=== PATIENT | male | born 1995 | race Caucasian/White ===

== ENCOUNTER 2017-01-27 11:09 | Emergency (ER) | payer SELFPAY ==
[2017-01-27 11:19] VITALS: TEMP 98.4
[2017-01-27] MEDS ORDERED: NS 1,000 ML IV ONE ×2 (11:26→13:18)
[2017-01-27] MEDS ORDERED: ONDANSETRON 4 MG/2 ML VIAL IVP ONE (11:26)
[2017-01-27] MEDS ORDERED: LORazepam 2 MG/ML INJ IVP ONE (11:26)
[2017-01-27 11:33] LABS: % IMMATURE GRANULYOCYTES 0.3 % (0.0-1.1); ABSOLUTE IMMATURE GRANULOCYTES 0.04 10^3/uL (0.00-0.10); ADD DIFF? NO; ADD MORPH? NO; ADD SCAN? NO; ATYPICAL LYMPHOCYTE FLAG 0 (0-99); FRAGMENT RBC FLAG 0 (0-99); HEMATOCRIT 49.4 % (40.0-51.0); HEMOGLOBIN 16.6 g/dL (13.7-17.5); LEFT SHIFT FLG 0 (0-99); LIPEMIA HEMOLYSIS FLAG 80 (0-99); MEAN CELL HEMOGLOBIN 26.9 pg (27.9-34.1); MEAN CELL HEMOGLOBIN CONCENTR. 33.6 g/dL (32.4-36.7); MEAN CELL VOLUME 80.1 fL (81.5-99.8); MEAN PLATELET VOLUME 9.8 fL (8.7-11.7); PLATELET CLUMPS FLAG 0 (0-99); PLATELET COUNT 372 10^3/uL (150-400); RED BLOOD CELL COUNT 6.17 10^6/uL (4.40-6.38); RED CELL DISTRIBUTION WIDTH 13.3 % (11.5-15.2)
[2017-01-27 11:55] LABS: ANION GAP 16 mEq/L (8-16); CALCIUM 9.9 mg/dL (8.5-10.4); CARBON DIOXIDE 22 mEq/l (22-31); CHLORIDE 102 mEq/L (97-110); CREATININE 0.8 mg/dL (0.7-1.3); GLOMERULAR FILTRATION RATE > 60; GLUCOSE 92 mg/dL (70-100); POTASSIUM 4.1 mEq/L (3.5-5.2); SODIUM 140 mEq/L (134-144)
[2017-01-27] MEDS ORDERED: HALOPERIDOL LACT 5 MG/ML INJ IVP ONE (13:17)
--- NOTE | 2017-01-27 13:22 | EDPHY ---
H & P Stated Complaint: ABD PAIN N/V X3 DAYS Source: Patient Exam Limitations: No limitations - Personal History Current Tetanus/Diphtheria Vaccine: Yes Current Tetanus Diphtheria and Acellular Pertussis (TDAP): Yes - Medical/Surgical History Hx Asthma: No Hx Chronic Respiratory Disease: No Hx Diabetes: No Hx Cardiac Disease: No Hx Renal Disease: No Hx Cirrhosis: No Hx Alcoholism: No Hx HIV/AIDS: No Hx Splenectomy or Spleen Trauma: No Other PMH: PMH- MARIJUANA SMOKER - Social History Smoking Status: Current every day smoker Time Seen by Provider: 01/27/17 11:16 HPI/ROS: CHIEF COMPLAINT: nausea, vomiting, abdominal pain HISTORY OF PRESENT ILLNESS: 21-year-old male presents emergency department complaining of nausea, vomiting and abdominal pain x2 days. Patient reports similar symptoms 3 weeks ago. He was treated in the hospital in [place] given Zofran, Dilaudid and lorazepam. Patient reports this improved his symptoms. Patient is a daily marijuana smoker. He denies fevers or chills, no diarrhea. Patient denies any abdominal surgeries. No recent sick contacts. Emesis is bile, he denies blood in his vomit or coffee-ground emesis. REVIEW OF SYSTEMS: A comprehensive 10 point review of systems is otherwise negative aside from elements mentioned in the history of present illness. (Daiana Guzman) - Physical Exam Exam: Physical Exam Gen: Alert and Oriented, NAD HEENT: PERRL, moist mucous membranes NECK: no meningismus CV: regular rate and regular rhythm PULM: CTAB, no wheezes ABDOMEN: soft, diffuse mild tenderness to palpation, no masses, normal bowel sounds BACK: No CVA tenderness NEURO: Neurologically grossly intact EXTREMITIES: normal appearing SKIN: no rash or break in skin on exposed skin PSYCH: answers questions appropriately. (Dainaa Guzman) Constitutional: Initial Vital Signs Temperature (C) 36.9 C 01/27/17 11:09 Heart Rate 68 01/27/17 11:09 Respiratory Rate 20 01/27/17 11:09 Blood Pressure 156/83 H 01/27/17 11:09 O2 Sat (%) 98 01/27/17 11:09 O2 Delivery Mode Room Air Allergies/Adverse Reactions: No Known Allergies Allergy (Unverified 01/27/17 11:14) Home Medications: Medication Instructions Recorded Ondansetron Odt [Zofran Odt] 4 mg PO Q6-8PRN PRN #8 tab 01/27/17 Medical Decision Making - Diagnostics Imaging: Right upper quadrant ultrasound- Impression: Normal. No cholelithiasis, biliary dilation, hydronephrosis, or free fluid. Findings discussed with emergency department physician syrup mixer assistant, Daiana Guzman NP on January 27, 2017 at 1512 hours. Dictated By: George Peguero MD (Daiana Guzman) ED Course/Re-evaluation: Patient brought in by EMS with IV in place, patient is given 1 L of normal saline, 1 mg of lorazepam IV and 4 mg of Zofran IV. Patient is requesting Dilaudid. On repeat examination the patient is sleeping. Patient has an elevated white blood cell count at 12,000, I think this is stress related and due to vomiting, I am not concerned about a bacterial infection. Chemistry panel is unremarkable. I have added on a lipase and LFTs. 110pm-patient continues with nausea and upper abdominal pain. I have ordered 5 mg of IV Haldol and a 2nd L of normal saline. 210pm-total bilirubin is 1.6, patient reports feeling much better after the Haldol, on repeat examination he is tender in his right upper quadrant and epigastric region. I will order a right upper quadrant ultrasound. Right upper quadrant ultrasound is negative for cholecystitis. Patient continues feeling better after the Haldol, no nausea or vomiting, abdominal pain has resolved. He will be discharged home with a prescription for Zofran. He is given return precautions and [facility]. (Daiana Guzman) I did not see this patient while he was in the emergency department. However his care was discussed with the nurse practitioner while the patient was in the department. I agree with treatment plan and management (Iggy Holm) Differential Diagnosis: The differential diagnosis for the patient's nausea and vomiting included but was not limited to cholecystitis, cyclic vomiting syndrome from cannabinoid use , gastroenteritis, gastritis, appendicitis, and medication side effect. (Daiana Guzman) - Data Points Laboratory Results: Laboratory Results 01/27/17 11:18 01/27/17 11:18 Medications Given: Discontinued Medications Haloperidol Lactate (Haldol Injection) 5 mg IVP EDNOW ONE Stop: 01/27/17 13:18 Last Admin: 01/27/17 13:33 Dose: 5 mg Sodium Chloride (Ns) 1,000 mls @ 0 mls/hr IV ONCE ONE PRN Reason: Wide Open Stop: 01/27/17 11:27 Last Admin: 01/27/17 11:32 Dose: 1,000 mls Sodium Chloride (Ns) 1,000 mls @ 0 mls/hr IV ONCE ONE PRN Reason: Wide Open Stop: 01/27/17 13:19 Last Admin: 01/27/17 13:35 Dose: 1,000 mls Lorazepam (Ativan Injection) 1 mg IVP EDNOW ONE Stop: 01/27/17 11:27 Last Admin: 01/27/17 11:32 Dose: 1 mg Ondansetron HCl (Zofran) 4 mg IVP EDNOW ONE Stop: 01/27/17 11:27 Last Admin: 01/27/17 11:32 Dose: 4 mg Ondansetron HCl (Zofran Odt 4 Mg Prepack#2) 1 btl TAKEHOME EDNOW ONE Stop: 01/27/17 16:21 Last Admin: 01/27/17 16:24 Dose: 1 btl Departure - Departure Disposition: Home, Routine, Self-Care Clinical Impression: Nausea & vomiting Condition: Good Instructions: Acute Nausea and Vomiting (ED), Abdominal Pain (ED) Additional Instructions: Take 4 mg of Zofran every 8 hours as needed for nausea. Stop smoking marijuana. Follow up with the primary care doctor listed for any continued symptoms. Return to the emergency department for worsening abdominal pain, new symptoms or concerns. Referrals: [facility] [Outside] - As per Instructions Prescriptions: Ondansetron Odt [Zofran Odt] 4 mg PO Q6-8PRN PRN #8 tab PRN Reason: Nausea/Vomiting, Can'T Take Po
[2017-01-27 13:35] LABS: ALBUMIN 4.6 g/dL (3.5-5.0); BILIRUBIN,TOTAL 1.6 mg/dL (0.1-1.4); BILIRUBIN-CONJUGATED 0.3 mg/dL (0.0-0.5); BILIRUBIN-UNCONJUGATED 1.3 mg/dL (0.0-1.1); TOTAL PROTEIN 7.6 g/dL (6.3-8.2)
[2017-01-27 13:45] LABS: COLOR YELLOW; LEUKOCYTE ESTERASE,URINE NEGATIVE (NEGATIVE); NITRITE,URINE NEGATIVE (NEGATIVE)
[2017-01-27 14:44] VITALS: O2SAT 96
[2017-01-27] MEDS ORDERED: ONDANSETRON 4MG PREPACK#2 BTL TAKEHOME ONE (16:20)
[2017-01-27 16:26] VITALS: BP 131/84; PULSE 86; RESP 16
== END 2017-01-27 16:26 | disposition home or self-care (01) ==
DX: R11.2 Nausea with vomiting, unspecified (principal); F17.200 Nicotine dependence, unspecified, uncomplicated
CPT/HCPCS: 96374; J2405

== ENCOUNTER 2017-01-30 07:10 | Emergency (ER) | payer SELFPAY ==
--- NOTE | 2017-01-30 07:14 | EDPHY ---
H & P Time Seen by Provider: 01/30/17 07:13 HPI/ROS: CHIEF COMPLAINT: Nausea and vomiting HISTORY OF PRESENT ILLNESS: Patient was seen here 3 days ago for similar symptoms. He recently moved from [place]. His history of heroin addiction. He was treated with haloperidol and Ativan last time had a negative right upper quadrant ultrasound. Patient said he felt well for about 10-12 hours and then started having recurrent nausea and vomiting. He took a friend's hydrocodone today and says that that did not help his symptoms. He presents with symptoms that are moderate to severe, associated with diffuse mild abdominal cramping and no diarrhea. Not associated with fevers or chills. Says it is worse if he tries to eat or drink anything. Labs drawn at that visit showed electrolytes within normal limits, a slightly elevated liver function test, normal lipase. REVIEW OF SYSTEMS: Eye: no change in vision ENT: no sore throat, dental pain right posterior Cardiac: no chest pain or syncope Pulmonary: no cough or SOB Abdomen: HPI Musculoskeletal: no back pain Skin: no rash Neuro: no headache Constitutional: no fever : no urinary symptoms A comprehensive 10 point review of systems is otherwise negative aside from elements mentioned in the history of present illness. PAST MEDICAL HISTORY: No previous abdominal surgeries. Social history: History of IV heroin abuse for at least the last 5 years, clean for the last 2 weeks. General Appearance: Alert and conversant, cooperative. Eyes: No scleral icterus. ENT, Mouth: Slightly dry mucous membranes, no trismus or gum swelling, no dental tenderness to percussion. Respiratory: Normal respiratory effort, breath sounds equal, lungs are clear to auscultation. Cardiovascular: Regular rate and rhythm. Gastrointestinal: Abdomen is soft and non tender. No rebound or guarding and no Alexandra sign. No McBurney's point tenderness. No hernia. Neurological: Alert and oriented x3. Normally conversant. Face symmetric, normal movement and sensation in all extremities. Skin: Warm and dry, no rashes. Musculoskeletal: No peripheral edema and no joint swelling. Psychiatric: Not agitated. Emergency Department course/MDM: Normal saline 2 L IV for nausea and vomiting. Haldol 5 mg IV and Ativan 1 mg IV. No opioids. Case management referral. Patient felt better after treatment, asked to leave prior to seeing case management. I think that is reasonable. Smoking Status: Current every day smoker Constitutional: Initial Vital Signs Temperature (C) 36.6 C 01/30/17 07:10 Heart Rate 75 01/30/17 07:10 Respiratory Rate 16 01/30/17 07:10 Blood Pressure 145/73 H 01/30/17 07:10 O2 Sat (%) 95 01/30/17 07:10 O2 Delivery Mode Room Air Allergies/Adverse Reactions: No Known Allergies Allergy (Verified 01/30/17 07:14) Home Medications: Medication Instructions Recorded Ondansetron Odt [Zofran Odt] 4 mg PO Q6-8PRN PRN #8 tab 01/27/17 Hydrocodon-Acetaminophen 5-325 01/30/17 Medical Decision Making Differential Diagnosis: Differential considered including but not limited to opioid withdrawal, gastroenteritis, appendicitis, metabolic abnormality. - Data Points Laboratory Results: Laboratory Results 01/30/17 07:30 01/30/17 07:30 01/30/17 01/30/17 07:30 07:30 WBC 11.47 10^3/uL H 10^3/uL (3.80-9.50) RBC 5.61 10^6/uL 10^6/uL (4.40-6.38) Hgb 15.1 g/dL g/dL (13.7-17.5) Hct 43.8 % % (40.0-51.0) MCV 78.1 fL L fL (81.5-99.8) MCH 26.9 pg L pg (27.9-34.1) MCHC 34.5 g/dL g/dL (32.4-36.7) RDW 13.2 % % (11.5-15.2) Plt Count 349 10^3/uL 10^3/uL (150-400) MPV 9.5 fL fL (8.7-11.7) Neut % (Auto) 85.7 % H % (39.3-74.2) Lymph % (Auto) 10.1 % L % (15.0-45.0) [place] % (Auto) 3.6 % L % (4.5-13.0) Eos % (Auto) 0.1 % L % (0.6-7.6) Baso % (Auto) 0.3 % % (0.3-1.7) Nucleat RBC Rel Count 0.0 % % (0.0-0.2) Absolute Neuts (auto) 9.84 10^3/uL H 10^3/uL (1.70-6.50) Absolute Lymphs (auto) 1.16 10^3/uL 10^3/uL (1.00-3.00) Absolute Monos (auto) 0.41 10^3/uL 10^3/uL (0.30-0.80) Absolute Eos (auto) 0.01 10^3/uL L 10^3/uL (0.03-0.40) Absolute Basos (auto) 0.03 10^3/uL 10^3/uL (0.02-0.10) Absolute Nucleated RBC 0.00 10^3/uL 10^3/uL (0-0.01) Immature Gran % 0.2 % % (0.0-1.1) Immature Gran # 0.02 10^3/uL 10^3/uL (0.00-0.10) Sodium 141 mEq/L mEq/L (134-144) Potassium 4.0 mEq/L mEq/L (3.5-5.2) Chloride 104 mEq/L mEq/L (97-110) Carbon Dioxide 25 mEq/l mEq/l (22-31) Anion Gap 12 mEq/L mEq/L (8-16) BUN 9 mg/dL mg/dL (7-23) Creatinine 0.7 mg/dL mg/dL (0.7-1.3) Estimated GFR > 60 Glucose 95 mg/dL mg/dL (70-100) Calcium 9.8 mg/dL mg/dL (8.5-10.4) Medications Given: Discontinued Medications Haloperidol Lactate (Haldol Injection) 5 mg IV EDNOW ONE Stop: 01/30/17 07:22 Last Admin: 01/30/17 07:30 Dose: 5 mg Sodium Chloride (Ns) 1,000 mls @ 0 mls/hr IV ONCE ONE PRN Reason: Wide Open Stop: 01/30/17 07:22 Last Admin: 01/30/17 07:30 Dose: 1,000 mls Sodium Chloride (Ns) 1,000 mls @ 0 mls/hr IV ONCE ONE PRN Reason: Wide Open Stop: 01/30/17 07:22 Last Admin: 01/30/17 09:10 Dose: Not Given Lorazepam (Ativan Injection) 1 mg IVP EDNOW ONE Stop: 01/30/17 07:22 Last Admin: 01/30/17 07:35 Dose: 1 mg Departure - Departure Disposition: Home, Routine, Self-Care Clinical Impression: Nausea & vomiting Qualifiers: Vomiting type: unspecified Vomiting Intractability: non-intractable Qualified Code(s): R11.2 - Nausea with vomiting, unspecified Condition: Good Instructions: Acute Nausea and Vomiting (ED) Referrals: [facility],. [Clinic] - As per Instructions
[2017-01-30 07:16] VITALS: RESP 16
[2017-01-30] MEDS ORDERED: LORazepam 2 MG/ML INJ IVP ONE (07:21)
[2017-01-30] MEDS ORDERED: HALOPERIDOL LACT 5 MG/ML INJ IV ONE (07:21)
[2017-01-30] MEDS ORDERED: NS 1,000 ML IV ONE ×2 (07:21)
[2017-01-30 07:34] LABS: % IMMATURE GRANULYOCYTES 0.2 % (0.0-1.1); ABSOLUTE IMMATURE GRANULOCYTES 0.02 10^3/uL (0.00-0.10); ADD DIFF? NO; ADD MORPH? NO; ADD SCAN? NO; ATYPICAL LYMPHOCYTE FLAG 0 (0-99); FRAGMENT RBC FLAG 0 (0-99); HEMATOCRIT 43.8 % (40.0-51.0); HEMOGLOBIN 15.1 g/dL (13.7-17.5); LEFT SHIFT FLG 0 (0-99); LIPEMIA HEMOLYSIS FLAG 90 (0-99); MEAN CELL HEMOGLOBIN 26.9 pg (27.9-34.1); MEAN CELL HEMOGLOBIN CONCENTR. 34.5 g/dL (32.4-36.7); MEAN CELL VOLUME 78.1 fL (81.5-99.8); MEAN PLATELET VOLUME 9.5 fL (8.7-11.7); PLATELET CLUMPS FLAG 0 (0-99); PLATELET COUNT 349 10^3/uL (150-400); RED BLOOD CELL COUNT 5.61 10^6/uL (4.40-6.38); RED CELL DISTRIBUTION WIDTH 13.2 % (11.5-15.2)
[2017-01-30 08:10] LABS: ANION GAP 12 mEq/L (8-16); CALCIUM 9.8 mg/dL (8.5-10.4); CARBON DIOXIDE 25 mEq/l (22-31); CHLORIDE 104 mEq/L (97-110); CREATININE 0.7 mg/dL (0.7-1.3); GLOMERULAR FILTRATION RATE > 60; GLUCOSE 95 mg/dL (70-100); SODIUM 141 mEq/L (134-144)
[2017-01-30 09:07] VITALS: BP 120/95; PULSE 78; TEMP 98.1; O2SAT 92
== END 2017-01-30 09:08 | disposition home or self-care (01) ==
LOC: EDUNIT#
DX: R11.2 Nausea with vomiting, unspecified (principal); F17.200 Nicotine dependence, unspecified, uncomplicated
CPT/HCPCS: 96374; J2060

== ENCOUNTER 2017-02-01 22:31 | Emergency (ER) | payer SELFPAY ==
[2017-02-01] MEDS ORDERED: FAMOTIDINE 20 MG/NACL 50 ML IV ONE (22:36)
[2017-02-01] MEDS ORDERED: METOCLOPRAMIDE 10 MG/2 ML VIAL IVP ONE (22:36)
[2017-02-01] MEDS ORDERED: NS 1,000 ML IV ONE ×2 (22:36)
--- NOTE | 2017-02-01 22:49 | EDPHY ---
H & P Stated Complaint: Vomiting Time Seen by Provider: 02/01/17 22:32 HPI/ROS: HPI The patient presents with nausea, vomiting, abdominal pain which have been intermittent for the last 1 week. As this is his 3rd ER visit for the same. He is brought in by ambulance today, he has received 4 of Zofran by the paramedics. He says his symptoms have been intermittent, occurring about every other day though are severe. He has multiple episodes of vomiting that seem to occur at random throughout the day and then subsequently developed crampy diffuse abdominal pain. He has not had any diarrhea, he is passing gas and having normal bowel movements. He has been able to eat meals intermittently. Previously in the emergency room he has had a right upper quadrant ultrasound which is unremarkable and other basic laboratory testing which is normal. He has been given Haldol and Ativan with some improvement in his symptoms. He is taking Zofran at home with minimal relief. He does have a history of daily marijuana use for the last 10 years. He last used heroin about 2 weeks ago while living in [place]. REVIEW OF SYSTEMS Constitutional: No fever, no chills. Eyes: No discharge. ENT: No sore throat. Cardiovascular: No chest pain, no palpitations. Respiratory: No cough, no shortness of breath. Gastrointestinal: See HPI Genitourinary: No hematuria. Musculoskeletal: No back pain. Skin: No rashes. Neurological: No headache. PMHx: Healthy, no diabetes, no hypertension Soc Hx: Recently moved here from [place], daily marijuana use, prior IVDU PHYSICAL General Appearance: Alert, no distress Eyes: Pupils equal and round no pallor or injection ENT, Mouth: Mucous membranes moist Respiratory: There are no retractions, lungs are clear to auscultation Cardiovascular: Regular rate and rhythm Gastrointestinal: Abdomen is soft and non-tender, no masses, bowel sounds normal Neurological: A&O, moves all extremities Skin: Warm and dry, no rashes Musculoskeletal: Neck is supple non tender Extremities: symmetrical, full range of motion Psychiatric: Patient is oriented X 3, there is no agitation Source: Patient Exam Limitations: No limitations - Personal History Current Tetanus/Diphtheria Vaccine: Yes Current Tetanus Diphtheria and Acellular Pertussis (TDAP): Yes - Medical/Surgical History Hx Asthma: No Hx Chronic Respiratory Disease: No Hx Diabetes: No Hx Cardiac Disease: No Hx Renal Disease: No Hx Cirrhosis: No Hx Alcoholism: No Hx HIV/AIDS: No Hx Splenectomy or Spleen Trauma: No Other PMH: PMH- MARIJUANA SMOKER, Opiate addiction - Social History Smoking Status: Current every day smoker Constitutional: Initial Vital Signs Temperature (C) 37.1 C 02/01/17 22:35 Heart Rate 67 02/01/17 22:35 Respiratory Rate 12 02/01/17 22:35 Blood Pressure 158/84 H 02/01/17 22:35 O2 Sat (%) 95 02/01/17 22:35 O2 Delivery Mode Room Air Allergies/Adverse Reactions: No Known Allergies Allergy (Verified 01/30/17 07:14) Home Medications: Medication Instructions Recorded Ondansetron Odt [Zofran Odt] 4 mg PO Q6-8PRN PRN #8 tab 01/27/17 Hydrocodon-Acetaminophen 5-325 01/30/17 Metoclopramide [Reglan 10 mg tab 10 mg PO Q6H PRN #20 tab 02/02/17 (*)] Medical Decision Making - Diagnostics Imaging: CT scan of abdomen pelvis with IV contrast shows either small hiatal hernia or esophagitis with thickening of the distal esophagus, discussed with Dr. Ruffin of Radiology. See his report for full details. ED Course/Re-evaluation: I met the paramedics at the bedside to obtain report upon the patient's arrival. We will start IV fluids for hypovolemia and vomiting, administer Reglan, famotidine check basic labs and will reassess him. After the Reglan and IV fluids, the patient had continued vomiting on my reassessment. Labs resulted and demonstrated a leukocytosis, changed from prior labs a few days ago. CT scan abdomen pelvis was performed which showed esophagitis versus hiatal hernia. This could be contributing to the patient's symptomatology. I have discussed this with him and have instructed him to start an antacid. After receiving Haldol the patient was reassessed again, he was able to sleep and is now feeling much better. 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 I have discussed this diagnosis with him and I have encouraged him to stop marijuana use to see if this improves his symptoms. He seems receptive to that. He will be discharged with a prescription for reglan and instructions to use antacids [id number]. I would like for him to follow up with [facility].. Differential Diagnosis: This is a 22-year-old male with no significant past medical history who presents with 1 week of nausea and vomiting associated with crampy abdominal pain. On arrival, he is uncomfortable appearing, with mild diffuse abdominal tenderness. Differential diagnosis includes gastroenteritis, appendicitis, colitis, diverticulitis, biliary colic, cannabinoid hyperemesis syndrome. - Data Points Laboratory Results: Laboratory Results 02/01/17 22:45 02/01/17 22:45 02/02/17 02/01/17 02/01/17 01:20 22:45 22:45 WBC 16.21 10^3/uL H 10^3/uL (3.80-9.50) RBC 5.68 10^6/uL 10^6/uL (4.40-6.38) Hgb 15.2 g/dL g/dL (13.7-17.5) Hct 45.0 % % (40.0-51.0) MCV 79.2 fL L fL (81.5-99.8) MCH 26.8 pg L pg (27.9-34.1) MCHC 33.8 g/dL g/dL (32.4-36.7) RDW 13.5 % % (11.5-15.2) Plt Count 341 10^3/uL 10^3/uL (150-400) MPV 9.6 fL fL (8.7-11.7) Neut % (Auto) 85.9 % H % (39.3-74.2) Lymph % (Auto) 10.0 % L % (15.0-45.0) [place] % (Auto) 2.8 % L % (4.5-13.0) Eos % (Auto) 0.6 % % (0.6-7.6) Baso % (Auto) 0.4 % % (0.3-1.7) Nucleat RBC Rel Count 0.0 % % (0.0-0.2) Absolute Neuts (auto) 13.93 10^3/uL H 10^3/uL (1.70-6.50) Absolute Lymphs (auto) 1.62 10^3/uL 10^3/uL (1.00-3.00) Absolute Monos (auto) 0.45 10^3/uL 10^3/uL (0.30-0.80) Absolute Eos (auto) 0.09 10^3/uL 10^3/uL (0.03-0.40) Absolute Basos (auto) 0.07 10^3/uL 10^3/uL (0.02-0.10) Absolute Nucleated RBC 0.00 10^3/uL 10^3/uL (0-0.01) Immature Gran % 0.3 % % (0.0-1.1) Immature Gran # 0.05 10^3/uL 10^3/uL (0.00-0.10) Sodium 139 mEq/L mEq/L (134-144) Potassium 3.8 mEq/L mEq/L (3.5-5.2) Chloride 101 mEq/L mEq/L (97-110) Carbon Dioxide 24 mEq/l mEq/l (22-31) Anion Gap 14 mEq/L mEq/L (8-16) BUN 11 mg/dL mg/dL (7-23) Creatinine 0.8 mg/dL mg/dL (0.7-1.3) Estimated GFR > 60 Glucose 88 mg/dL mg/dL (70-100) Calcium 9.8 mg/dL mg/dL (8.5-10.4) Total Bilirubin 1.0 mg/dL mg/dL (0.1-1.4) Conjugated Bilirubin 0.3 mg/dL mg/dL (0.0-0.5) Unconjugated Bilirubin 0.7 mg/dL mg/dL (0.0-1.1) AST 38 IU/L IU/L (17-59) ALT 54 IU/L IU/L (21-72) Alkaline Phosphatase 51 IU/L IU/L (38-126) Total Protein 7.2 g/dL g/dL (6.3-8.2) Albumin 4.6 g/dL g/dL (3.5-5.0) Lipase 115.0 IU/L IU/L (23-300) Urine Color YELLOW Urine Appearance CLEAR Urine pH 6.0 (5.0-7.5) Ur Specific [place] 1.021 (1.002-1.030) Urine Protein NEGATIVE (NEGATIVE) Urine Ketones 1+ H (NEGATIVE) Urine Blood NEGATIVE (NEGATIVE) Urine Nitrate NEGATIVE (NEGATIVE) Urine Bilirubin NEGATIVE (NEGATIVE) Urine Urobilinogen NEGATIVE EU EU (0.2-1.0) Ur Leukocyte Esterase NEGATIVE (NEGATIVE) Ur Culture Indicated? NOT INDICATED (NI) Urine Glucose NEGATIVE (NEGATIVE) Medications Given: Discontinued Medications Haloperidol Lactate (Haldol Injection) 5 mg IVP EDNOW ONE Stop: 02/02/17 00:02 Last Admin: 02/02/17 00:21 Dose: 5 mg Sodium Chloride (Ns) 1,000 mls @ 0 mls/hr IV ONCE ONE PRN Reason: Wide Open Stop: 02/01/17 22:37 Last Admin: 02/01/17 22:55 Dose: 1,000 mls Sodium Chloride (Ns) 1,000 mls @ 0 mls/hr IV ONCE ONE PRN Reason: Wide Open Stop: 02/01/17 22:37 Last Admin: 02/01/17 22:55 Dose: 1,000 mls Famotidine/Sodium Chloride (Pepcid 20 Mg (Premix)) 50 mls @ 200 mls/hr IV EDNOW ONE Stop: 02/01/17 22:50 Last Admin: 02/01/17 22:56 Dose: 50 mls Metoclopramide HCl (Reglan Injection) 10 mg IVP EDNOW ONE Stop: 02/01/17 22:37 Last Admin: 02/01/17 22:56 Dose: 10 mg Departure - Departure Disposition: Home, Routine, Self-Care Clinical Impression: Vomiting Qualifiers: Vomiting type: unspecified Vomiting Intractability: unspecified Nausea presence : with nausea Qualified Code(s): R11.2 - Nausea with vomiting, unspecified Leukocytosis Qualifiers: Leukocytosis type: unspecified Qualified Code(s): D72.829 - Elevated white blood cell count, unspecified Condition: Good Instructions: Acute Nausea and Vomiting (ED) Additional Instructions: Please return to the emergency room if your worse in any way. I recommend that you stop using marijuana to see if this helps her symptoms improved. You may have a condition called canabanoid hyperemesis syndrome. Referrals: [facility] [Outside] - As per Instructions Prescriptions: Metoclopramide [Reglan 10 mg tab (*)] 10 mg PO Q6H PRN #20 tab PRN Reason: vomiting
[2017-02-01] MEDS ORDERED: IOPAMIDOL (ISOVUE-300) 100 ML BTL IV ONE (22:55)
[2017-02-01 22:57] LABS: % IMMATURE GRANULYOCYTES 0.3 % (0.0-1.1); ABSOLUTE IMMATURE GRANULOCYTES 0.05 10^3/uL (0.00-0.10); ADD DIFF? NO; ADD MORPH? NO; ADD SCAN? NO; ATYPICAL LYMPHOCYTE FLAG 0 (0-99); FRAGMENT RBC FLAG 0 (0-99); HEMOGLOBIN 15.2 g/dL (13.7-17.5); LEFT SHIFT FLG 0 (0-99); LIPEMIA HEMOLYSIS FLAG 90 (0-99); MEAN CELL HEMOGLOBIN 26.8 pg (27.9-34.1); MEAN CELL HEMOGLOBIN CONCENTR. 33.8 g/dL (32.4-36.7); MEAN CELL VOLUME 79.2 fL (81.5-99.8); MEAN PLATELET VOLUME 9.6 fL (8.7-11.7); PLATELET CLUMPS FLAG 0 (0-99); PLATELET COUNT 341 10^3/uL (150-400); RED BLOOD CELL COUNT 5.68 10^6/uL (4.40-6.38); RED CELL DISTRIBUTION WIDTH 13.5 % (11.5-15.2)
[2017-02-01 23:08] LABS: ALANINE AMINOTRANSFERASE 54 IU/L (21-72); ALBUMIN 4.6 g/dL (3.5-5.0); ALKALINE PHOSPHATASE 51 IU/L (38-126); ANION GAP 14 mEq/L (8-16); ASPARTATE AMINOTRANSFERASE 38 IU/L (17-59); BILIRUBIN-CONJUGATED 0.3 mg/dL (0.0-0.5); BILIRUBIN-UNCONJUGATED 0.7 mg/dL (0.0-1.1); CALCIUM 9.8 mg/dL (8.5-10.4); CARBON DIOXIDE 24 mEq/l (22-31); CHLORIDE 101 mEq/L (97-110); CREATININE 0.8 mg/dL (0.7-1.3); GLOMERULAR FILTRATION RATE > 60; GLUCOSE 88 mg/dL (70-100); POTASSIUM 3.8 mEq/L (3.5-5.2); SODIUM 139 mEq/L (134-144); TOTAL PROTEIN 7.2 g/dL (6.3-8.2)
[2017-02-01 23:37] VITALS: RESP 12
[2017-02-02] MEDS ORDERED: HALOPERIDOL LACT 5 MG/ML INJ IVP ONE (00:01)
[2017-02-02 01:27] LABS: COLOR YELLOW; LEUKOCYTE ESTERASE,URINE NEGATIVE (NEGATIVE); NITRITE,URINE NEGATIVE (NEGATIVE)
[2017-02-02 03:20] VITALS: BP 144/72; PULSE 79; TEMP 99.9; O2SAT 97
== END 2017-02-02 03:18 | disposition home or self-care (01) ==
LOC: EDUNIT#
DX: R11.2 Nausea with vomiting, unspecified (principal); D72.829 Elevated white blood cell count, unspecified; F17.200 Nicotine dependence, unspecified, uncomplicated
CPT/HCPCS: 96374; J2765; Q9967